=== PATIENT | female | born 1995 | race African-American/Black ===

== ENCOUNTER 2019-06-11 08:42 | Inpatient (IN) ==
[2019-06-11] MEDS ORDERED: LACTATED RINGERS 250 ML IV PRN (08:48)
[2019-06-11] MEDS ORDERED: ePHEDrine 50 MG/ML AMP IV PRN (08:48)
[2019-06-11] MEDS ORDERED: ceFAZolin 2,000 MG in PREMIX 1 EACH IV ONE (08:48)
[2019-06-11] MEDS ORDERED: PROMETHAZINE 25 MG/1 ML VIAL IM ONE (08:48)
[2019-06-11] MEDS ORDERED: CITRIC ACID/SODIUM CITRATE 30 ML UDCUP PO ONE (08:48)
[2019-06-11] MEDS ORDERED: LACTATED RINGERS 500 ML IV ONE (08:48)
[2019-06-11] MEDS ORDERED: diphenhydrAMINE 50 MG/1 ML VIAL IV PRN ×3 (08:48→15:23)
[2019-06-11] MEDS ORDERED: FAMOTIDINE 20 MG/2 ML VIAL IV ONE (08:48)
[2019-06-11] MEDS ORDERED: ONDANSETRON 4 MG/2 ML VIAL IV ONE (08:48)
[2019-06-11] MEDS ORDERED: LACTATED RINGERS 1,000 ML IV ONE (08:48)
[2019-06-11] MEDS ORDERED: hydrOXYzine HCL 25 MG/1 ML VIAL IM PRN (08:48)
[2019-06-11] MEDS ORDERED: INFLUENZA VIRUS VACCINE 0.5 ML SYRINGE IM ONE (09:00)
[2019-06-11] MEDS ORDERED: LACTATED RINGERS 1,000 ML IV SCH ×2 (09:00)
[2019-06-11] MEDS ORDERED: miSOPROStoL 200 MCG TABLET ONE (09:15)
[2019-06-11 09:16] LABS: Basophils % 0.4 % (0.0-0.8); Eosinophils # 0.1 10*3/uL (0.0-0.87); Eosinophils % 1.1 % (0.00-10.9); Hematocrit 33.2 VOL% (35.7-47.0); Hemoglobin 10.1 GM/DL (12.0-16.0); Immature Granulocytes % 0.9 %; Immature Granulocytes Absolute 0.07 #; Lymphocytes # 1.1 10*3/uL (1.4-4.0); Lymphocytes % 14.1 % (21.3-54.2); Mean Corpuscular HGB Conc 30.4 GM/DL (32-36); Mean Corpuscular Volume 79.8 FL (87-102); Mean Platelet Volume 11.9 FL (9.6-12.0); Monocytes % 8.2 % (1.7-12.7); Neutrophils % 75.3 % (38.7-73.9); Platelet Count 299 T/CUMM (130-400); Red Blood Count 4.16 MC/CUMM (3.8-5.5); White Blood Count 7.9 T/CUMM (4-12)
[2019-06-11] MEDS ORDERED: CARBOPROST TROMETHAMINE 250 MCG/ML AMP IM ONE (09:16)
[2019-06-11] MEDS ORDERED: OXYTOCIN/LR 20 UNIT/1,000 ML BAG IV ONE ×4 (09:16→15:14)
[2019-06-11] MEDS ORDERED: METHYLERGONOVINE 0.2 MG/1 ML AMP ONE (09:16)
[2019-06-11 09:47] LABS: Alanine Aminotransferase < 9 U/L (13-56); Albumin 2.7 G/DL (3.4-5.0); Alkaline Phosphatase 152 U/L (45-117); Aspartate Amino Transferase 13 U/L (0-37); Blood Urea Nitrogen 8 MG/DL (7-18); Estimated Glom Filtration Rate 141 ML/MIN; Glucose 86 MG/DL (74-106); Osmolality,Calculated 273.5 MOS/KG (273-304); Total Protein 7.1 G/DL (6.4-8.3)
[2019-06-11] MEDS ORDERED: BUPIVACAINE 0.25% 50 ML VIAL ONE (10:00)
[2019-06-11] MEDS: LACTATED RINGERS 1,000 ML IV SCH ×2 (10:01→20:35)
[2019-06-11] MEDS ORDERED: PHENYLEPHRINE 1 MG/10 ML SYRINGE IV ONE (12:31)
[2019-06-11] MEDS ORDERED: MORPHINE 10 MG/10 ML VIAL ONE (12:32)
[2019-06-11] MEDS ORDERED: BUPIVACAINE SPINAL 0.75% 2 ML AMP SPINAL ONE (12:32)
[2019-06-11 13:45] LABS: Apearance,Urine CLEAR (Clear); Bilirubin,Urine Negative (Negative); Blood, Urine Negative (Negative); Glucose,Urine (UA) Negative (Negative); Ketones,Urine 5 mg/dL (Negative); Mucus,Urine Occasional /LPF (Occasional); Nitrite,Urine Negative (Negative); Protein,Urine Negative; RBC,Urine 1 /HPF (0-4); Squamous Epithelial Cell,Urine Occasional /HPF (0-10); Urine Color Yellow (Yellow); WBC,Urine 1 /HPF (0-6)
[2019-06-11] MEDS ORDERED: ONDANSETRON 4 MG/2 ML VIAL IV PRN (15:14)
[2019-06-11] MEDS ORDERED: ACETAMINOPHEN 325 MG TABLET PO PRN (15:14)
[2019-06-11] MEDS ORDERED: SIMETHICONE CHEW 80 MG TABLET PO PRN (15:14)
[2019-06-11] MEDS ORDERED: RHO(D) IMMUNE GLOBULIN 300 MCG SYRINGE IM ONE (15:14)
[2019-06-11] MEDS ORDERED: MAGNESIUM HYDROXIDE SUSP 30 ML UDCUP PO PRN (15:14)
[2019-06-11] MEDS: ceFAZolin 1,000 MG in SYRINGE 1 EACH IV SCH (18:33)
[2019-06-11] MEDS: KETOROLAC 30 MG/1 ML VIAL IV SCH ×2 (18:33→19:15)
[2019-06-11] MEDS ORDERED: HydrOXYzine PAMOATE 25 MG CAPSULE PO PRN (20:33)
[2019-06-12] MEDS ORDERED: SODIUM CHLORIDE 0.9% 100 ML IV ONE (01:37)
[2019-06-12] MEDS: ceFAZolin 1,000 MG in SYRINGE 1 EACH IV SCH (01:44)
[2019-06-12] MEDS: DOCUSATE SODIUM 100 MG CAPSULE PO SCH ×3 (01:44→20:48)
[2019-06-12] MEDS: KETOROLAC 30 MG/1 ML VIAL IV SCH (01:45)
[2019-06-12 05:49] LABS: Basophils % 0.2 % (0.0-0.8); Eosinophils # 0.1 10*3/uL (0.0-0.87); Eosinophils % 1.4 % (0.00-10.9); Hematocrit 27.8 VOL% (35.7-47.0); Hemoglobin 8.6 GM/DL (12.0-16.0); Immature Granulocytes % 0.5 %; Immature Granulocytes Absolute 0.04 #; Lymphocytes # 1.1 10*3/uL (1.4-4.0); Lymphocytes % 13.3 % (21.3-54.2); Mean Corpuscular HGB Conc 30.9 GM/DL (32-36); Mean Corpuscular Volume 80.3 FL (87-102); Mean Platelet Volume 11.8 FL (9.6-12.0); Monocytes % 8.7 % (1.7-12.7); Neutrophils % 75.9 % (38.7-73.9); Platelet Count 263 T/CUMM (130-400); Red Blood Count 3.46 MC/CUMM (3.8-5.5); Red Cell Distribution Width 14.1 % (9.3-17.3); White Blood Count 8.1 T/CUMM (4-12)
[2019-06-12] MEDS: MULTIVITAMIN (PRENATAL) TABLET PO SCH (10:20)
[2019-06-12] MEDS: IBUPROFEN 800 MG TABLET PO SCH ×2 (13:05→20:48)
[2019-06-12] MEDS: IRON (CARBONYL)/VIT C/B12/FA TABLET PO SCH (17:05)
[2019-06-13] MEDS: IBUPROFEN 800 MG TABLET PO SCH ×2 (04:07→12:34)
[2019-06-13] MEDS: IRON (CARBONYL)/VIT C/B12/FA TABLET PO SCH (08:53)
[2019-06-13] MEDS: DOCUSATE SODIUM 100 MG CAPSULE PO SCH (08:53)
[2019-06-13] MEDS: MULTIVITAMIN (PRENATAL) TABLET PO SCH (08:53)
[2019-06-13] MEDS ORDERED: DIPH/TET/ACEL PERT BOOSTER VACCINE 0.5 ML VIAL IM ONE (10:13)
[2019-06-13] MEDS ORDERED: INFLUENZA VIRUS VACCINE 0.5 ML SYRINGE IM ONE (10:14)
[2019-06-13 11:57] VITALS: BP 118/77
== END 2019-06-13 14:00 | disposition home or self-care (01) ==
LOC: N.LD 08:42 → N.OB 15:03
PROVIDERS: ADMIT Obstetrics & Gynecology; ATTEND Obstetrics & Gynecology

== ENCOUNTER 2021-06-14 09:57 | Inpatient (IN) ==
[2021-06-14] MEDS: LABETALOL 100 MG TABLET PO SCH ×2 (11:19→20:48)
[2021-06-14 11:34] LABS: Basophils % 0.3 % (0.0-0.8); Eosinophils # 0.1 10*3/uL (0.0-0.87); Hematocrit 34.9 VOL% (35.7-47.0); Hemoglobin 10.7 GM/DL (12.0-16.0); Immature Granulocytes % 0.8 %; Immature Granulocytes Absolute 0.06 #; Lymphocytes # 1.1 10*3/uL (1.4-4.0); Lymphocytes % 15.2 % (21.3-54.2); Mean Corpuscular HGB Conc 30.7 GM/DL (32-36); Mean Corpuscular Volume 83.7 FL (87-102); Mean Platelet Volume 12.1 FL (9.6-12.0); Monocytes % 7.1 % (1.7-12.7); Neutrophils % 75.6 % (38.7-73.9); Platelet Count 226 T/CUMM (130-400); Red Blood Count 4.17 MC/CUMM (3.8-5.5); Red Cell Distribution Width 13.4 % (9.3-17.3); White Blood Count 7.2 T/CUMM (4-12)
[2021-06-14 11:39] LABS: Bacteria,Urine Occasional /HPF (Few); Bilirubin,Urine Negative (Negative); Blood, Urine Negative (Negative); Glucose,Urine (UA) Negative (Negative); Ketones,Urine Negative (Negative); Mucus,Urine Many /LPF (Occasional); Nitrite,Urine Negative (Negative); Protein,Urine 100 MG/DL; RBC,Urine 5 /HPF (0-4); Squamous Epithelial Cell,Urine Few /HPF (0-10); Urine Appearance Slightly Hazy (Clear); Urine Color Yellow (Yellow); Urine Specific Gravity 1.025 (1.001-1.035)
[2021-06-14 11:50] LABS: INR 0.9; Partial Thromboplastin Time 29.6 SECS (23.8-32.1)
[2021-06-14 12:08] LABS: Alanine Aminotransferase < 9 U/L (13-56); Albumin 2.3 G/DL (3.4-5.0); Alkaline Phosphatase 167 U/L (45-117); Aspartate Amino Transferase 13 U/L (0-37); Blood Urea Nitrogen 7 MG/DL (7-18); Calcium 8.5 MG/DL (8.5-10.1); Carbon Dioxide 24 MMOL/L (21-32); Estimated Glom Filtration Rate 152 ML/MIN; Glucose 88 MG/DL (74-106); Potassium 3.6 MMOL/L (3.5-5.1); Sodium 136 MMOL/L (136-145); Total Protein 6.3 G/DL (6.4-8.2); Uric Acid 5.3 MG/DL (2.6-6.0)
[2021-06-14 13:01] LABS: Protein/Creatinine Ratio,Urine 0.3 RATIO
[2021-06-14] MEDS ORDERED: NIFEdipine 10 MG CAPSULE PO ONE ×2 (15:56→16:20)
[2021-06-14] MEDS ORDERED: ACETAMINOPHEN 500 MG TABLET PO PRN (18:02)
[2021-06-14] MEDS: BETAMETH SODIUM PHOS/ACETATE 30 MG/5 ML VIAL IM SCH (19:06)
[2021-06-14] MEDS ORDERED: PROMETHAZINE 25 MG/1 ML VIAL IM ONE (23:23)
[2021-06-14] MEDS ORDERED: MEPERIDINE 50 MG/1 ML VIAL IM ONE (23:23)
[2021-06-15] MEDS: BETAMETH SODIUM PHOS/ACETATE 30 MG/5 ML VIAL IM SCH (05:58)
[2021-06-15] MEDS ORDERED: CITRIC ACID/SODIUM CITRATE 30 ML UDCUP PO ONE (07:40)
[2021-06-15] MEDS ORDERED: ceFAZolin 2,000 MG/50 ML DUPLEX IV ONE (07:40)
[2021-06-15] MEDS: LACTATED RINGERS 1,000 ML IV SCH ×2 (07:48→08:45)
[2021-06-15] MEDS ORDERED: FAMOTIDINE 20 MG/2 ML VIAL IV ONE (07:50)
[2021-06-15] MEDS ORDERED: OXYTOCIN/LR 30 UNIT/1,000 ML BAG IV ONE (07:52)
[2021-06-15] MEDS ORDERED: OXYTOCIN 10 UNIT/ML VIAL IM ONE (07:52)
[2021-06-15] MEDS ORDERED: ONDANSETRON 4 MG/2 ML VIAL ONE (07:59)
[2021-06-15] MEDS ORDERED: PHENYLEPHRINE 1 MG/10 ML SYRINGE IV ONE (07:59)
[2021-06-15] MEDS ORDERED: BUPIVACAINE SPINAL 0.75% 2 ML AMP SPINAL ONE (07:59)
[2021-06-15] MEDS ORDERED: MIDAZOLAM 2 MG/2 ML VIAL ONE (09:45)
[2021-06-15] MEDS ORDERED: KETOROLAC 30 MG/1 ML VIAL IV PRN ×2 (09:51→18:00)
[2021-06-15 09:54] LABS: Cord Arterial Blood HCO3 21.1 MMOL/L
[2021-06-15 09:55] LABS: Cord Venous Blood PCO2 40.6 MMHG
[2021-06-15 10:05] LABS: Bilirubin,Urine Negative (Negative); Blood, Urine Negative (Negative); Glucose,Urine (UA) Negative (Negative); Ketones,Urine 20 mg/dL (Negative); Mucus,Urine Occasional /LPF (Occasional); Nitrite,Urine Negative (Negative); Protein,Urine 30 MG/DL; Squamous Epithelial Cell,Urine Occasional /HPF (0-10); Urine Appearance CLEAR (Clear); Urine Color Straw (Yellow); Urine Specific Gravity 1.011 (1.001-1.035); Urine Urobilinogen < 2.0 EU/DL (0.2-1.0)
[2021-06-15] MEDS ORDERED: KETOROLAC 30 MG/1 ML VIAL ONE (10:08)
[2021-06-15] MEDS ORDERED: ACETAMINOPHEN INJ 1,000 MG/100 ML VIAL IV ONE (10:08)
[2021-06-15] MEDS ORDERED: ACETAMINOPHEN 325 MG TABLET PO PRN ×2 (10:18→10:25)
[2021-06-15] MEDS ORDERED: ONDANSETRON 4 MG/2 ML VIAL IV PRN ×2 (10:18→10:25)
[2021-06-15] MEDS ORDERED: IBUPROFEN 800 MG TABLET PO PRN ×2 (10:18→10:25)
[2021-06-15] MEDS ORDERED: MAGNESIUM HYDROXIDE SUSP 30 ML UDCUP PO PRN (10:18)
[2021-06-15] MEDS ORDERED: SIMETHICONE CHEW 80 MG TABLET PO PRN ×2 (10:18→10:25)
[2021-06-15] MEDS ORDERED: OXYTOCIN/LR 20 UNIT/1,000 ML BAG IV ONE ×2 (10:18→10:25)
[2021-06-15] MEDS ORDERED: RHO(D) IMMUNE GLOBULIN 300 MCG SYRINGE IM ONE ×2 (10:18→10:25)
[2021-06-15] MEDS ORDERED: LACTATED RINGERS 1,000 ML IV SCH ×2 (10:30)
[2021-06-15 17:06] LABS: Basophils % 0.1 % (0.0-0.8); Hematocrit 33.1 VOL% (35.7-47.0); Hemoglobin 10.5 GM/DL (12.0-16.0); Lymphocytes # 0.9 10*3/uL (1.4-4.0); Lymphocytes % 4.2 % (21.3-54.2); Mean Corpuscular HGB Conc 31.7 GM/DL (32-36); Mean Platelet Volume 12.7 FL (9.6-12.0); Monocytes % 3.5 % (1.7-12.7); Neutrophils % 91.2 % (38.7-73.9); Platelet Count 268 T/CUMM (130-400); Red Blood Count 3.99 MC/CUMM (3.8-5.5); Red Cell Distribution Width 13.6 % (9.3-17.3); White Blood Count 20.6 T/CUMM (4-12)
[2021-06-15] MEDS: KETOROLAC 30 MG/1 ML VIAL IV SCH (17:35)
[2021-06-15 17:46] LABS: Hypochromasia 2+; Lymphocytes 8 % (20-55); Microcytosis 2+; Polychromasia Slight; Segmented Neutrophils 88 % (50-85); Tear Drop Cells Few; Total Cells Counted 100
[2021-06-15 17:47] LABS: Platelet Estimate Normal
[2021-06-15] MEDS ORDERED: ACETAMINOPHEN 500 MG TABLET PO SCH (18:00)
[2021-06-15] MEDS ORDERED: DOCUSATE SODIUM 100 MG CAPSULE PO SCH (21:00)
[2021-06-16] MEDS: KETOROLAC 30 MG/1 ML VIAL IV SCH (00:46)
[2021-06-16] MEDS: DOCUSATE SODIUM 100 MG CAPSULE PO SCH ×3 (01:29→21:46)
[2021-06-16 05:14] LABS: Basophils % 0.1 % (0.0-0.8); Hematocrit 29.1 VOL% (35.7-47.0); Immature Granulocytes % 1.3 %; Immature Granulocytes Absolute 0.21 #; Lymphocytes # 0.9 10*3/uL (1.4-4.0); Lymphocytes % 5.3 % (21.3-54.2); Mean Corpuscular HGB Conc 30.9 GM/DL (32-36); Mean Corpuscular Volume 83.1 FL (87-102); Mean Platelet Volume 12.3 FL (9.6-12.0); Monocytes % 5.4 % (1.7-12.7); Neutrophils % 87.9 % (38.7-73.9); Platelet Count 252 T/CUMM (130-400); Red Cell Distribution Width 13.7 % (9.3-17.3); White Blood Count 16.7 T/CUMM (4-12)
[2021-06-16] MEDS: MULTIVITAMIN (PRENATAL) TABLET PO SCH (08:17)
[2021-06-16] MEDS: MAGNESIUM HYDROXIDE SUSP 30 ML UDCUP PO PRN ×2 (08:17→21:46)
[2021-06-16] MEDS: METOCLOPRAMIDE 10 MG TABLET PO SCH ×2 (08:17→15:23)
[2021-06-16] MEDS ORDERED: MULTIVITAMIN (PRENATAL) TABLET PO SCH (09:00)
[2021-06-16] MEDS ORDERED: BISACODYL 10 MG SUPP RECTAL PRN (21:37)
[2021-06-17] MEDS: DOCUSATE SODIUM 100 MG CAPSULE PO SCH ×2 (07:56→09:18)
[2021-06-17] MEDS: MULTIVITAMIN (PRENATAL) TABLET PO SCH ×2 (07:57→09:18)
[2021-06-17] MEDS: METOCLOPRAMIDE 10 MG TABLET PO SCH (09:16)
[2021-06-17 10:30] VITALS: BP 147/79
== END 2021-06-17 12:30 | disposition home or self-care (01) | DRG 540 ==
LOC: N.LDOUT 09:57 → N.LD 09:58 → N.OB 06-15 12:40
PROVIDERS: ADMIT Obstetrics & Gynecology; ATTEND Obstetrics & Gynecology
PROC: LDCSECT (ICD-10-PCS; 2021-06-15 08:30)

== ENCOUNTER 2022-09-12 10:49 | Inpatient (IN) ==
[2022-09-12] MEDS ORDERED: METHYLERGONOVINE 0.2 MG/1 ML AMP IM PRN (11:31)
[2022-09-12] MEDS ORDERED: CITRIC ACID/SODIUM CITRATE 30 ML UDCUP PO ONE (11:31)
[2022-09-12] MEDS ORDERED: FAMOTIDINE 20 MG/2 ML VIAL IV ONE (11:31)
[2022-09-12] MEDS ORDERED: OXYTOCIN/LR 20 UNIT/1,000 ML BAG IV ONE ×3 (11:31→16:09)
[2022-09-12] MEDS ORDERED: CARBOPROST TROMETHAMINE 250 MCG/ML AMP IM PRN (11:31)
[2022-09-12] MEDS ORDERED: miSOPROStoL 200 MCG TABLET RECTAL PRN (11:31)
[2022-09-12] MEDS ORDERED: ceFAZolin 2,000 MG/50 ML DUPLEX IV ONE (11:31)
[2022-09-12] MEDS ORDERED: TRANEXAMIC ACID 1,000 MG in SODIUM CHLORIDE 0.9% 100 ML IV PRN (11:31)
[2022-09-12] MEDS ORDERED: OXYTOCIN 10 UNIT/ML VIAL IM ONE (11:36)
[2022-09-12] MEDS ORDERED: OXYTOCIN/LR 30 UNIT/1,000 ML BAG IV ONE (11:36)
[2022-09-12 11:53] LABS: Basophils % 0.2 % (0.0-0.8); Eosinophils # 0.1 10*3/uL (0.0-0.87); Eosinophils % 1.1 % (0.00-10.9); Hematocrit 37.5 VOL% (35.7-47.0); Hemoglobin 12.2 GM/DL (12.0-16.0); Immature Granulocytes % 0.9 %; Immature Granulocytes Absolute 0.06 #; Lymphocytes # 1.2 10*3/uL (1.4-4.0); Mean Corpuscular HGB Conc 32.5 GM/DL (32-36); Mean Corpuscular Volume 84.1 FL (87-102); Mean Platelet Volume 11.4 FL (9.6-12.0); Monocytes # 0.5 10*3/uL (0.11-0.8); Monocytes % 6.9 % (1.7-12.7); Neutrophils % 72.9 % (38.7-73.9); Platelet Count 205 T/CUMM (130-400); Red Blood Count 4.46 MC/CUMM (3.8-5.5); Red Cell Distribution Width 14.8 % (9.3-17.3); White Blood Count 6.6 T/CUMM (4-12)
[2022-09-12] MEDS ORDERED: LACTATED RINGERS 1,000 ML IV SCH ×2 (12:00→16:30)
[2022-09-12 12:11] LABS: Albumin 2.5 G/DL (3.4-5.0); Bilirubin,Total 0.5 MG/DL (0.20-1.00); Calcium 8.6 MG/DL (8.5-10.1); Osmolality,Calculated 273.5 MOS/KG (273-304); Potassium 3.7 MMOL/L (3.5-5.1); Total Protein 6.8 G/DL (6.4-8.2)
[2022-09-12] MEDS ORDERED: miSOPROStoL 200 MCG TABLET ONE (12:49)
[2022-09-12] MEDS ORDERED: TRANEXAMIC ACID 1,000 MG/10 ML VIAL ONE (12:49)
[2022-09-12] MEDS ORDERED: METHYLERGONOVINE 0.2 MG/1 ML AMP ONE (12:50)
[2022-09-12] MEDS ORDERED: CARBOPROST TROMETHAMINE 250 MCG/ML AMP IM ONE (12:50)
[2022-09-12] MEDS ORDERED: SODIUM CHLORIDE 0.9% 0 ML IV ONE (12:50)
[2022-09-12] MEDS ORDERED: buprenorphine HCL 0.3 MG/ML VIAL ONE (14:41)
[2022-09-12] MEDS ORDERED: ONDANSETRON 4 MG/2 ML VIAL ONE (14:41)
[2022-09-12] MEDS ORDERED: LACTATED RINGERS 1,000 ML IV ONE (15:12)
[2022-09-12] MEDS ORDERED: PHENYLEPHRINE 1 MG/10 ML SYRINGE IV ONE (15:12)
[2022-09-12] MEDS ORDERED: KETOROLAC 30 MG/1 ML VIAL ONE (15:39)
[2022-09-12 15:47] LABS: Bilirubin,Urine Negative (Negative); Blood, Urine Negative (Negative); Glucose,Urine (UA) Negative (Negative); Ketones,Urine 15 mg/dL (Negative); Nitrite,Urine Negative (Negative); Protein,Urine Negative (Negative); Urine Appearance Clear (Clear); Urine Color Yellow (Yellow); Urine Specific Gravity 1.015 (1.001-1.035); Urine Urobilinogen < 2.0 eU/dL (<2.0)
[2022-09-12 15:47] LABS: Cord Arterial Blood HCO3 19.9 MMOL/L
[2022-09-12 15:50] LABS: Cord Venous Blood HCO3 21.4 MMOL/L; Cord Venous Blood PCO2 51.8 MMHG; Cord Venous Blood PO2 28.5
[2022-09-12 15:52] LABS: Mucus,Urine Occasional /LPF (Occasional); Squamous Epithelial Cell,Urine Occasional /HPF (0-10)
[2022-09-12] MEDS ORDERED: IBUPROFEN 800 MG TABLET PO PRN (16:09)
[2022-09-12] MEDS ORDERED: RHO(D) IMMUNE GLOBULIN 300 MCG SYRINGE IM ONE (16:09)
[2022-09-12] MEDS ORDERED: ONDANSETRON 4 MG/2 ML VIAL IV PRN (16:09)
[2022-09-12] MEDS ORDERED: SIMETHICONE CHEW 80 MG TABLET PO PRN (16:09)
[2022-09-12] MEDS ORDERED: MAGNESIUM HYDROXIDE SUSP 30 ML UDCUP PO PRN (16:09)
[2022-09-12] MEDS ORDERED: ACETAMINOPHEN 325 MG TABLET PO PRN (16:09)
[2022-09-12] MEDS: ACETAMINOPHEN 500 MG TABLET PO SCH ×2 (21:22→22:07)
[2022-09-12] MEDS: DOCUSATE SODIUM 100 MG CAPSULE PO SCH (22:06)
[2022-09-12] MEDS: KETOROLAC 30 MG/1 ML VIAL IV SCH (22:08)
[2022-09-12 22:18] LABS: Basophils % 0.2 % (0.0-0.8); Eosinophils % 0.4 % (0.00-10.9); Hematocrit 34.3 VOL% (35.7-47.0); Hemoglobin 11.1 GM/DL (12.0-16.0); Immature Granulocytes % 0.8 %; Immature Granulocytes Absolute 0.08 #; Lymphocytes # 1.5 10*3/uL (1.4-4.0); Lymphocytes % 14.6 % (21.3-54.2); Mean Corpuscular HGB Conc 32.4 GM/DL (32-36); Mean Corpuscular Volume 84.9 FL (87-102); Mean Platelet Volume 10.9 FL (9.6-12.0); Monocytes # 0.6 10*3/uL (0.11-0.8); Monocytes % 5.8 % (1.7-12.7); Neutrophils % 78.2 % (38.7-73.9); Platelet Count 204 T/CUMM (130-400); Red Blood Count 4.04 MC/CUMM (3.8-5.5); Red Cell Distribution Width 14.7 % (9.3-17.3); White Blood Count 10.3 T/CUMM (4-12)
[2022-09-13] MEDS: ACETAMINOPHEN 500 MG TABLET PO SCH ×2 (03:47→07:41)
[2022-09-13] MEDS: KETOROLAC 30 MG/1 ML VIAL IV SCH (03:48)
[2022-09-13 08:22] LABS: Basophils % 0.3 % (0.0-0.8); Eosinophils # 0.1 10*3/uL (0.0-0.87); Eosinophils % 1.1 % (0.00-10.9); Hematocrit 35.1 VOL% (35.7-47.0); Hemoglobin 11.3 GM/DL (12.0-16.0); Immature Granulocytes % 0.5 %; Immature Granulocytes Absolute 0.03 #; Lymphocytes # 1.2 10*3/uL (1.4-4.0); Lymphocytes % 18.9 % (21.3-54.2); Mean Corpuscular HGB Conc 32.2 GM/DL (32-36); Mean Corpuscular Volume 85.2 FL (87-102); Mean Platelet Volume 10.9 FL (9.6-12.0); Monocytes # 0.5 10*3/uL (0.11-0.8); Monocytes % 8.2 % (1.7-12.7); Platelet Count 219 T/CUMM (130-400); Red Blood Count 4.12 MC/CUMM (3.8-5.5); Red Cell Distribution Width 14.6 % (9.3-17.3); White Blood Count 6.5 T/CUMM (4-12)
[2022-09-13] MEDS: DOCUSATE SODIUM 100 MG CAPSULE PO SCH ×2 (08:28→20:56)
[2022-09-13] MEDS: MULTIVITAMIN (PRENATAL) TABLET PO SCH (08:28)
[2022-09-14 07:54] VITALS: BP 133/68
[2022-09-14] MEDS: MULTIVITAMIN (PRENATAL) TABLET PO SCH (08:03)
[2022-09-14] MEDS: DOCUSATE SODIUM 100 MG CAPSULE PO SCH (08:03)
== END 2022-09-14 12:10 | disposition home or self-care (01) | DRG 540 ==
LOC: N.LD 10:49 → N.OB 21:22
PROVIDERS: ADMIT Obstetrics & Gynecology; ATTEND Obstetrics & Gynecology
PROC: LDCSECT (ICD-10-PCS; 2022-09-12 13:45)